=== PATIENT | female | born 1995 | race American Indian/Alaskan Native ===

== ENCOUNTER 2018-03-12 06:24 | Day surgery (SDC) | payer BC ==
[~2018-03-12 06:24] MED LIST: LACTATED RINGERS 1,000 ML IV SCH; VERSED IV NR
[2018-03-12] MEDS ORDERED: MONSEL'S TP ONE ×2 (07:29→09:00)
[2018-03-12] MEDS ORDERED: XYLOCAINE 1%/ EPI 1:100,000 INFILTRATI ONE (07:29)
[2018-03-12] MEDS ORDERED: ACETIC ACID 3% SOLN TP ONE (07:29)
[2018-03-12] MEDS ORDERED: LUGOL'S SOLUTION 5% TP ONE (07:29)
[2018-03-12] MEDS ORDERED: SILVER NITRATE TP ONE (07:29)
[2018-03-12] MEDS ORDERED: TRANSDERM-SCOP TD NR (07:30)
[2018-03-12] MEDS ORDERED: DIPRIVAN 10 MG/ML IV ONE (07:59)
[2018-03-12] MEDS ORDERED: SUBLIMAZE ONE (07:59)
--- NOTE | 2018-03-12 08:16 | Short Stay Summary ---
Short Stay Documentation Date of service: 03/12/18 Narrative H&P: Pt is a 22yo BF G0 LMP 03/08/18 that presents for surgical evaluation and treatment of cervical dysplasia. 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 She is therefore scheduled for a LEEP. - History Principal diagnosis: Cervical dysplasia H&P: obtained from office Past Medical History: No medical history Past Surgical History: No surgical history Social history: no significant social history, single - Allergies and Medications Current Medications: Allergies No Known Allergies Allergy (Unverified 03/07/18 10:49) Home Medications Medication Instructions Recorded Confirmed Last Taken Type No Known Home Medications [No 03/07/18 03/07/18 Unknown History Reported Home Medications] Active Medications Lactated Ringer's (Lactated Ringers) 1,000 mls @ 100 mls/hr IV DIRECT BENITA Midazolam HCl (Versed) 2 mg IV PREOP NR Stop: 03/12/18 23:59 Scopolamine (Transderm-Scop) 1 each TD PREOP NR Stop: 03/12/18 23:59 - Physical exam General appearance: no acute distress Integumentary: no rash HEENT: Atraumatic Lungs: Clear to auscultation Breasts: deferred Heart: Regular rate Gastrointestinal: normal Female Genitourinary: deferred Extremities: no ischemia, No edema Neurological: Normal gait, Normal speech - Brief post op/procedure progress note Date of procedure: 03/12/18 Pre-op diagnosis: Cervical dysplasia Post-op diagnosis: same Procedure: Cone biopsy by LEEP Anesthesia: MAC Findings: Normal appearing cervix Surgeon: WENDY DAN Estimated blood loss: minimal Pathology: list (Cone shaped portion of cervix) Specimen disposition: to lab Condition: stable - Hospital course Hospital course: Unremarkable. - Disposition Condition at discharge: Good Disposition: DC- TO HOME OR SELFCARE - Discharge Diagnoses (1) Cervical dysplasia Status: Resolved Short Stay Discharge Plan Activity: no restrictions Diet: regular Follow up with: JOVITA MENDES MD [Primary Care Provider] - 7 Days WENDY DAN MD [Staff Physician] - 14 Days Prescriptions: Ibuprofen [Motrin] 800 mg PO Q8HR PRN #30 tablet PRN Reason: Pain, Moderate (4-6)
[2018-03-12 08:44] LABS: Hematocrit 35.5 % (30.3-42.9); Hemoglobin 11.7 gm/dl (10.1-14.3)
[2018-03-12] MEDS ORDERED: ZOFRAN ONE (09:00)
[2018-03-12] MEDS ORDERED: XYLOCAINE MPF 2% ONE (09:00)
[2018-03-12] MEDS ORDERED: ANCEF/STERILE WATER 2 GM/20 ML 2 GM/20 ML SYRINGE IV NR (09:00)
[2018-03-12] MEDS ORDERED: ANCEF ONE (09:00)
--- NOTE | 2018-03-12 09:38 | Operative Report ---
Operative Report Operative Report: Date of procedure: 03/12/2018 Pre-operative diagnosis: Cervical dysplasia Post-operative diagnosis: Same Procedure name(s): Cone biopsy by LEEP Surgeon: Luisito Martinez MD Blindmaker: None Anesthesia: Gen. mask EBL: 2 mL's Findings: Normal-appearing cervix. No gross lesions seen Procedure: After the patient was correctly identified, she was prepped and draped in usual sterile fashion and placed in the dorsolithotomy position. First the bladder was emptied using a straight catheter, next a speculum was placed in the vaginal vault and the anterior lip of the cervix was grasped using single-tooth tenaculum. A 12 x 15 mm loop was used to perform the excision including the endocervical canal, which was tagged at 12:00 and sent to pathology. Minimal bleeding was noted. The base of the excision and the cervix was ablated and the procedure was then considered complete. Monsell solution was placed on the excision site. All instruments are removed from the vagina. The patient tolerated the procedure well and was transferred to recovery room in stable condition.
[2018-03-12] MEDS ORDERED: MOTRIN PO PRN (10:00)
[2018-03-12 10:24] VITALS: BP 132/90
--- NOTE | 2018-03-12 13:30 | Anesthesia Day of Surgery ---
Anesthesia Day of Surgery - Day of Surgery Patient Examined: Yes Patient H&P Reviewed: Yes Patient is NPO: Yes
--- NOTE | 2018-03-12 13:30 | Anesthesia Consultation ---
Anesthesia Consult and Med Hx Date of service: 03/12/18 - Airway Anesthetic Teeth Evaluation: Good ROM Head & Neck: Adequate Mental/Hyoid Distance: Adequate Mallampati Class: Class II Intubation Access Assessment: Good - Pulmonary Exam CTA: Yes - Cardiac Exam Cardiac Exam: RRR - Pre-Operative Health Status ASA Pre-Surgery Classification: ASA2 Proposed Anesthetic Plan: General - Central Nervous System Hx Psychiatric Problems: No - Other Systems Hx Substance Use: Yes (Marijuana every other day) Hx Cancer: No
--- NOTE | 2018-03-12 13:31 | Post Anesthesia Evaluation ---
- Post Anesthesia Evaluation Patient Participated: Yes Airway Patent: Yes Stable Respiratory Function: Yes Nausea/Vomiting: No Temp > 96.8F: Yes Pain Manageable: Yes Adequeate Hydration: Yes Anesthesia Complications: No
== END 2018-03-12 10:45 | disposition home or self-care (01) ==
LOC: OR 06:24
PROVIDERS: ATTEND Obstetrics & Gynecology
DX: N87.0 Mild cervical dysplasia (principal); N72 Inflammatory disease of cervix uteri
CPT/HCPCS: 36415; 57522; 81025; 85014; 85018; 88307; J0690; J2250; J2405; J2704; J3010; J7120